=== PATIENT | female | born 1970 | race Caucasian/White ===

== ENCOUNTER 2018-12-03 21:09 | Emergency (ER) | payer MEDICAID, OTHER ==
[~2018-12-03] VITALS: Ht 157.5 cm; Wt 71.2 kg
[2018-12-03 21:27] VITALS: Ht 157.5 cm; Wt 71.2 kg
[2018-12-03] MEDS ORDERED: ONDANSETRON (ODT) 4 MG TAB ODT STA (22:26)
[2018-12-03] MEDS ORDERED: LORAZEPAM 1 MG TAB PO ONE (22:30)
[2018-12-03] MEDS ORDERED: MECLIZINE 12.5 MG TAB PO ONE (22:30)
--- NOTE | 2018-12-03 22:30 | ERD ---
ER Documentation Chief Complaint Chief Complaint vomiting, dizzy for 2 hours HPI 48-year-old female, previously healthy, presents the emergency department, complaining of acute onset of dizziness, described as a sensation of things spinning around exacerbated by rapid head movement. The symptoms started 2 hours ago, associated with nausea and mild headache. No history of previous episodes. The patient denies blurred vision, no distal weakness, numbness or tingling. The patient denies chest pain, no palpitations. ROS All systems reviewed and are negative except as per history of present illness. Medications Home Meds Active Scripts Ondansetron (Ondansetron Odt) 4 Mg Tab.rapdis, 4 MG PO Q6H PRN for NAUSEA AND/OR VOMITING, #10 TAB Prov:AGATHA SARKAR MD 12/04/18 Meclizine Hcl* (Antivert*) 12.5 Mg Tab, 12.5 MG PO Q6H PRN for DIZZINESS, #20 TAB Prov:AGATHA SARKAR MD 12/04/18 Allergies Allergies: Coded Allergies: No Known Allergy (Unverified , 12/03/18) PMhx/Soc Medical and Surgical Hx: pt denies Medical Hx, pt denies Surgical Hx Hx Alcohol Use: No Hx Substance Use: No Hx Tobacco Use: No Smoking Status: Never smoker Physical Exam Vitals Vital Signs Date Temp Pulse Resp B/P (MAP) Pulse Ox O2 O2 Flow FiO2 Time Delivery Rate 12/03/18 97.9 64 16 147/84 99 21:27 (105) Physical Exam Patient is in no acute distress, vital signs stable. Alert and fully oriented. HEENT: PERRLA, EOMI, Sclera and conjunctiva appear normal, Canals clear, tympanic membranes WNL. THROAT: Normal oropharynx. NECK: Supple, No lymphadenopathy. Full ROM without pain or tenderness. HEART: RRR, no rubs, murmurs, clicks or gallops. LUNGS: Clear to auscultation. ABDOMEN: Soft, non-tender without masses or hepatosplenomegaly. EXTREMITIES: No edema bilaterally. BACK: Full ROM, no deformity, normal back exam NEURO: Cranial nerves grossly intact, no motor or sensory deficit. Mild horizontal nystagmus while the patient was looking straight ahead with mildly abnormal head impulse test. Result Diagram: 4/1/19 2238 4/1/19 2238 Results 24 hrs Laboratory Tests Test 12/03/18 22:38 12/03/18 23:19 12/03/18 23:21 White Blood Count 15.8 10^3/ul Red Blood Count 3.48 10^6/ul Hemoglobin 9.7 g/dl Hematocrit 30.1 % Mean Corpuscular Volume 86.5 fl Mean Corpuscular Hemoglobin 27.9 pg Mean Corpuscular Hemoglobin Concent 32.2 g/dl Red Cell Distribution Width 14.3 % Platelet Count 257 10^3/UL Mean Platelet Volume 9.9 fl Immature Granulocytes % 0.400 % Neutrophils % 86.6 % Lymphocytes % 8.7 % Monocytes % 3.5 % Eosinophils % 0.4 % Basophils % 0.4 % Nucleated Red Blood Cells % 0.0 /100WBC Immature Granulocytes # 0.070 10^3/ul Neutrophils # 13.7 10^3/ul Lymphocytes # 1.4 10^3/ul Monocytes # 0.6 10^3/ul Eosinophils # 0.1 10^3/ul Basophils # 0.1 10^3/ul Nucleated Red Blood Cells # 0.0 10^3/ul Sodium Level 140 mmol/L Potassium Level 3.8 mmol/L Chloride Level 103 mmol/L Carbon Dioxide Level 25 mmol/L Anion Gap 12 Blood Urea Nitrogen 25 mg/dl Creatinine 1.70 mg/dl Est Glomerular Filtrat Rate mL/min 32 mL/min Glucose Level 188 mg/dl Calcium Level 9.9 mg/dl Serum HCG, Qualitative NEGATIVE Bedside Urine pH (LAB) 7.0 Bedside Urine Protein (LAB) 1+ Bedside Urine Glucose (UA) 0.1% Bedside Urine Ketones (LAB) Negative Bedside Urine Blood Trace-intact Bedside Urine Nitrite (LAB) Negative Bedside Urine Leukocyte Esterase (L Negative POC Beta HCG, Qualitative BORDERLINE Current Medications Medications Dose Sig/Rene Start Time Status Last (Trade) Ordered Route PRN Stop Time Admin Dose Reason Admin Ondansetron 8 mg ONCE STAT 12/03/18 DC 12/03/18 HCl (Zofran ODT 22:26 12/03/18 22:36 Odt) 22:33 Meclizine 25 mg ONCE ONCE 12/03/18 DC 12/03/18 HCl PO 22:30 12/03/18 22:40 (Antivert) 22:34 Lorazepam 1 mg ONCE ONCE 12/03/18 DC 12/03/18 (Ativan) PO 22:30 12/03/18 22:36 22:33 EKG read by me: Rate/Rhythm: Regular rate and rhythm at a rate of 70 Intervals: Normal No acute ST changes. No T wave inversion Impression: No evidence of acute ischemia or arrhythmia Procedures/MDM Vital signs stable, neurovascular exam revealed horizontal nystagmus while the patient was looking straight ahead with mildly abnormal head impulse test. Differential diagnosis include but not limited to dehydration, cardiac arrhythmia, , Mnire's disease, vestibular neuronitis, migraine, vertigo, side effects of the medications, hypoglycemia. Less likely but is still a possibility, intracranial hemorrhage, ischemic stroke, DAM ATTENDANT neoplasm. Pertinent Data: 12 Lead ECG: Sinus rhythm, no ST changes, normal T wave, normal intervals Labs: CBC: Elevated WBC, BMP: normal kidney function, normal electrolytes. Glucose: normal Urine : Negative. CT head: Normal Physical examination and clinical presentation consistent most likely with positional vertigo During the ED course the patient remained stable, no new complaints. Results and clinical impression discussed with patient who agrees with management. The patient is stable to be treated outpatient and will be discharged home with instructions to follow up with the primary care provider in the next 48h. If symptoms persist, worsen or new symptoms develop, then patient should return to the ED immediately. Instructions explained and given directly by me to the patient with acknowledgment and demonstrated understanding. Disclaimer: Inadvertent spelling and grammatical errors are likely due to EHR/dictation software use and do not reflect on the overall quality of patient care. Also, please note that the electronic time recorded on this note does not necessarily reflect the actual time of the patient encounter. Departure Diagnosis: Primary Impression: Positional vertigo Condition: Stable Patient Instructions: Possible Causes of Dizziness or Fainting, Dizziness (Vertigo) and Balance Problems: Ensuring Your Safety Additional Instructions: Muchas estella por [facility] para holman servicio. Esperamos que en holman visita a la mario de emergencia holman problema medico haya sido solucionado y que se sienta mucho mejor. Para estar seguros que holman mejoria sigue en proceso, le pedimos el favor de hacer belle joy de seguimiento medico con holman doctor primario en los proximos 2-4 childress. Lleve con usted estos documentos y las medicinas recetadas. Si toby sintomas empeoran, NO SE ESPERE, por favor regrese a mario de emergencia INMEDIATAMENTE. En kemi que usted no tenga un mdico de atencin primaria: Llame al mdico o clnica comunitaria de referencia que aparece abajo morro las horas de consultorio para hacer belle joy para que le vean. CLINICAS: [facility] [phone] [facility] [phone] [facility] [phone] [facility] [phone] [facility] [phone] [facility] [phone] AGATHA RAMIREZ MD Dec 03, 2018 22:30
[2018-12-04] MEDS ORDERED: MECL12.574 PO (00:46)
[2018-12-04] MEDS ORDERED: ONDA4TAB14 PO (00:46)
[2018-12-04 00:59] VITALS: BP 118/72; PULSE 68; RESP 16
== END 2018-12-04 01:00 | disposition home or self-care (01) ==
LOC: FTE 21:09
DX: H81.10 Benign paroxysmal vertigo, unspecified ear (principal)
CPT/HCPCS: 36415; 70450; 80048; 81003; 81025; 84703; 85025; 93005; Z7502; Z7610